=== PATIENT | female | born 1975 | race Hispanic/Latino ===

== ENCOUNTER 2016-08-02 11:20 | Emergency (ER) | payer MEDICARE ==
[2016-08-02 11:30] VITALS: BP 135/91
[2016-08-02] MEDS ORDERED: REGLAN IV ONE (11:36)
[2016-08-02] MEDS ORDERED: BENADRYL IV ONE (11:36)
[2016-08-02] MEDS ORDERED: TORADOL IV ONE (11:37)
[2016-08-02] MEDS ORDERED: NACL 0.9% 1000 ML 1,000 ML IV ONE (11:37)
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
== END 2016-08-02 12:45 | disposition home or self-care (01) ==
LOC: ED 11:20
DX: R51 Headache (principal); F17.200 Nicotine dependence, unspecified, uncomplicated
CPT/HCPCS: 96361; 96374; 96375; 99282; J1200; J1885; J2765; J7030